=== PATIENT | female | born 1975 | race Caucasian/White ===

== ENCOUNTER 2016-09-05 15:14 | Inpatient (IN) | payer BC ==
[~2016-09-05] VITALS: Ht 175.3 cm; Wt 63.5 kg
[~2016-09-05 15:14] MED LIST: ACETAMINOPHEN/H1 TA6 PO; ATIVAN1 MG PO; COL100 PO; CYCLOBENZAPRINE10 MG PO; DILAUDID4 MG PO; DUL10S RC; FLONS; HYSINGLA ER40 MG PO; LAC PO; LAC30L PO; LEVOFLOXACIN500 M1 PO; METOCLOPRAMIDE10 MG PO; MSC15 PO; NOR10T PO; OXYCONTIN20 MG PO; REGLAN10 MG PO; RESTORIL15 MG PO; XANAX2 MG PO; ZOFRAN8 MG PO; [UNRECOGNIZED DRUG - CODE]
[2016-09-05 17:39] LABS: CALCIUM 9.3 mg/dL (8.5-10.1); CARBON DIOXIDE 31.7 mmol/L (21-32); CHLORIDE SERUM 103 mmol/L (98-107); CREATININE SERUM 0.8 mg/dL (0.6-1.0); GFR1 > 60 mL/min; GLUCOSE SERUM 141 mg/dL (74-106); POTASSIUM SERUM 3.3 mmol/L (3.5-5.1); SODIUM SERUM 142 mmol/L (136-145)
[2016-09-05 17:40] LABS: BASOPHIL % 0.1 % (0-2); PLATELET COUNT 196 x10^3mcL (130-400); RED CELL DISTRIBUTION WIDTH 14.5 % (11.5-14.5)
[2016-09-05 17:44] LABS: ALBUMIN 4.2 g/dL (3.4-5.0); ALKALINE PHOSPHATASE 75 U/L (46-116); ALT/SGPT 24 U/L (14-59); AST/SGOT 17 U/L (15-37); BILIRUBIN TOTAL 0.4 mg/dL (0.20-1.00); TOTAL PROTEIN, SERUM 7.8 g/dL (6.4-8.2)
[2016-09-05] MEDS ORDERED: FENTORA400 MCG BC (19:04)
[2016-09-05] MEDS ORDERED: ZANAFLEX CAPSULE4 MG PO (19:05)
[2016-09-05] MEDS ORDERED: HYSINGLA ER40 MG PO (19:05)
[2016-09-05] MEDS ORDERED: BEN20 PO (19:07)
[2016-09-05 20:20] LABS: MAGNESIUM 1.8 mg/dL (1.8-2.4); PHOSPHOROUS 3.2 mg/dL (2.5-4.9)
[2016-09-05 20:27] LABS: T3 TOTAL 0.79 ng/mL
[2016-09-05 20:29] LABS: FREE T4 0.82 ng/dL (0.76-1.46); T4(THYROXINE) 6.8 ug/dL (4.7-13.3)
[2016-09-05 20:34] VITALS: BP 138/87
[2016-09-05 21:01] VITALS: Ht 175.3 cm; Wt 63.5 kg
[2016-09-06 02:43] LABS: UA SPECIFIC GRAVITY >=1.030 (1.005-1.035); microscopic required? YES; urine erythrocyte TRACE (NEGATIVE)
[2016-09-06 03:08] LABS: AMPHETAMINE QUAL UR NONE DETECTED (NEG <=1000)
[2016-09-06 06:38] VITALS: BP 107/68
[2016-09-06 07:17] LABS: BASOPHIL % 0.2 % (0-2); PLATELET COUNT 163 x10^3mcL (130-400); RED CELL DISTRIBUTION WIDTH 14.3 % (11.5-14.5)
[2016-09-06 07:18] LABS: CALCIUM 8.5 mg/dL (8.5-10.1); CARBON DIOXIDE 26.2 mmol/L (21-32); CHLORIDE SERUM 107 mmol/L (98-107); CREATININE SERUM 0.6 mg/dL (0.6-1.0); GFR1 > 60 mL/min; GLUCOSE SERUM 107 mg/dL (74-106); POTASSIUM SERUM 3.2 mmol/L (3.5-5.1); SODIUM SERUM 142 mmol/L (136-145)
[2016-09-06 08:57] VITALS: BP 146/97
[2016-09-06 12:46] VITALS: BP 112/74
[2016-09-06 18:04] VITALS: BP 101/74
[2016-09-06 21:35] VITALS: BP 96/64
[2016-09-07 06:17] VITALS: BP 107/66
[2016-09-07 06:59] LABS: BASOPHIL % 0.6 % (0-2); PLATELET COUNT 139 x10^3mcL (130-400)
[2016-09-07 07:00] LABS: RED CELL DISTRIBUTION WIDTH 14.8 % (11.5-14.5)
[2016-09-07 07:03] LABS: CALCIUM 8.1 mg/dL (8.5-10.1); CARBON DIOXIDE 27.9 mmol/L (21-32); CHLORIDE SERUM 107 mmol/L (98-107); CREATININE SERUM 0.6 mg/dL (0.6-1.0); GFR1 > 60 mL/min; GLUCOSE SERUM 95 mg/dL (74-106); MAGNESIUM 1.9 mg/dL (1.8-2.4); PHOSPHOROUS 3.1 mg/dL (2.5-4.9); POTASSIUM SERUM 3.2 mmol/L (3.5-5.1); SODIUM SERUM 141 mmol/L (136-145)
[2016-09-07 09:11] VITALS: BP 115/74
[2016-09-07 13:34] VITALS: BP 129/81
[2016-09-07 17:09] VITALS: BP 132/84
[2016-09-07 21:51] VITALS: BP 116/73
[2016-09-08 06:01] VITALS: BP 122/90
[2016-09-08 06:15] LABS: BASOPHIL % 0.4 % (0-2); PLATELET COUNT 151 x10^3mcL (130-400); RED CELL DISTRIBUTION WIDTH 14.5 % (11.5-14.5)
[2016-09-08 06:34] LABS: CALCIUM 8.6 mg/dL (8.5-10.1); CARBON DIOXIDE 27.1 mmol/L (21-32); CHLORIDE SERUM 105 mmol/L (98-107); CREATININE SERUM 0.7 mg/dL (0.6-1.0); GFR1 > 60 mL/min; GLUCOSE SERUM 109 mg/dL (74-106); MAGNESIUM 1.9 mg/dL (1.8-2.4); PHOSPHOROUS 3.3 mg/dL (2.5-4.9); POTASSIUM SERUM 3.8 mmol/L (3.5-5.1); SODIUM SERUM 140 mmol/L (136-145)
[2016-09-08 09:34] VITALS: BP 144/87
[2016-09-08] MEDS ORDERED: MSC30 PO (09:49)
[2016-09-08] MEDS ORDERED: LEV500 PO (09:51)
[2016-09-08] MEDS ORDERED: COLACE100 MG PO (09:51)
[2016-09-08] MEDS ORDERED: LAC PO (09:52)
[2016-09-08] MEDS ORDERED: ROBAXIN500 MG PO (09:53)
[2016-09-08] MEDS ORDERED: ZOFRAN8 MG PO (10:10)
[2016-09-08 10:39] VITALS: BP 144/87
== END 2016-09-08 12:40 | disposition home or self-care (01) | DRG 947 ==
LOC: ED 15:14 → DU 18:45 → MU 09-08 05:40
PROVIDERS: Emergency Medicine; Family Medicine; ADMIT Family Medicine
DX: G89.18 Other acute postprocedural pain (principal); N17.0 Acute kidney failure with tubular necrosis; E44.0 Moderate protein-calorie malnutrition; G83.4 Cauda equina syndrome; N39.0 Urinary tract infection, site not specified; E87.6 Hypokalemia; E78.5 Hyperlipidemia, unspecified; F41.1 Generalized anxiety disorder; K58.9 Irritable bowel syndrome, unspecified; F43.10 Post-traumatic stress disorder, unspecified; F45.9 Somatoform disorder, unspecified; M54.9 Dorsalgia, unspecified; G89.4 Chronic pain syndrome; R82.4 Acetonuria; Z90.49 Acquired absence of other specified parts of digestive tract; Z98.890 Other specified postprocedural states; Z82.49 Family history of ischemic heart disease and other diseases of the circulatory system
CPT/HCPCS: 80307; 83880; 84439; C9113; J1100; J1170; J1200; J1630; J2060; J2270; J2405; J2550; J2765; J2800; J3480; J7030; Q0092

== ENCOUNTER 2017-11-23 06:22 | Inpatient (IN) | payer BC ==
[~2017-11-23] VITALS: Ht 175.3 cm; Wt 74.1 kg
[~2017-11-23 06:22] MED LIST changes: +BEN20 PO; +COLACE100 MG PO; +FENTORA400 MCG BC; +LEV500 PO; +MSC30 PO; +ROBAXIN500 MG PO; +ZANAFLEX CAPSULE4 MG PO
[2017-11-23 06:27] VITALS: Ht 175.3 cm; Wt 74.1 kg
[2017-11-23] MEDS ORDERED: ALPRAZOLAM2 M2 PO (09:57)
[2017-11-23] MEDS ORDERED: FLUOXETINE HYDR20 M2 (09:57)
[2017-11-23] MEDS ORDERED: BEN20 PO (09:57)
[2017-11-23] MEDS ORDERED: ZOFRAN8 MG PO (09:58)
[2017-11-23] MEDS ORDERED: NOR10T PO (09:58)
[2017-11-23] MEDS ORDERED: TIZANIDINE HCL4 MG PO (09:59)
[2017-11-23 10:08] LABS: BASOPHIL % 0.2 % (0-2); PLATELET COUNT 183 x10^3mcL (130-400); RED CELL DISTRIBUTION WIDTH 14.1 % (11.5-14.5)
[2017-11-23 10:29] LABS: CALCIUM 8.5 mg/dL (8.5-10.1); CARBON DIOXIDE 29.2 mmol/L (21-32); CHLORIDE SERUM 105 mmol/L (98-107); CREATININE SERUM 0.6 mg/dL (0.6-1.0); GFR1 > 60 mL/min; GLUCOSE SERUM 116 mg/dL (74-106); POTASSIUM SERUM 3.5 mmol/L (3.5-5.1); SODIUM SERUM 144 mmol/L (136-145)
[2017-11-23 10:37] LABS: ALBUMIN 3.5 g/dL (3.4-5.0); ALKALINE PHOSPHATASE 103 U/L (46-116); ALT/SGPT 34 U/L (14-59); AST/SGOT 29 U/L (15-37); TOTAL PROTEIN, SERUM 7.1 g/dL (6.4-8.2)
[2017-11-23 10:43] LABS: T3 TOTAL 0.91 ng/mL
[2017-11-23 10:56] VITALS: BP 139/87
[2017-11-23 11:43] LABS: MAGNESIUM 1.9 mg/dL (1.8-2.4); PHOSPHOROUS 3.2 mg/dL (2.5-4.9)
[2017-11-23] MEDS ORDERED: ACETAMINOPHEN &1 TA1 PO (11:45)
[2017-11-23 11:53] LABS: FREE T4 0.77 ng/dL (0.76-1.46); FREE THYROXINE INDEX 1.8 ug/dL (1.4-4.5); T4(THYROXINE) 5.7 ug/dL (4.7-13.3)
[2017-11-23 11:59] LABS: CHOLESTEROL/HDL RATIO 1.8
[2017-11-23 13:31] VITALS: BP 127/74
[2017-11-23 18:19] VITALS: BP 108/66
[2017-11-23 20:48] VITALS: BP 109/67
[2017-11-24 05:31] VITALS: BP 94/51
[2017-11-24 06:47] LABS: BASOPHIL % 0.2 % (0-2); PLATELET COUNT 174 x10^3mcL (130-400); RED CELL DISTRIBUTION WIDTH 14.3 % (11.5-14.5)
[2017-11-24 06:59] LABS: CALCIUM 8.5 mg/dL (8.5-10.1); CARBON DIOXIDE 28.1 mmol/L (21-32); CHLORIDE SERUM 105 mmol/L (98-107); CREATININE SERUM 0.6 mg/dL (0.6-1.0); GFR1 > 60 mL/min; GLUCOSE SERUM 110 mg/dL (74-106); MAGNESIUM 1.9 mg/dL (1.8-2.4); PHOSPHOROUS 2.9 mg/dL (2.5-4.9); POTASSIUM SERUM 3.4 mmol/L (3.5-5.1); SODIUM SERUM 142 mmol/L (136-145)
[2017-11-24 09:28] VITALS: BP 105/62
[2017-11-24 13:16] LABS: UA SPECIFIC GRAVITY >=1.030 (1.005-1.035); microscopic required? YES; urine erythrocyte NEGATIVE (NEGATIVE)
[2017-11-24 13:22] LABS: AMPHETAMINE QUAL UR NONE DETECTED (NEG <=1000)
[2017-11-24 13:28] VITALS: BP 111/79
[2017-11-24 17:51] VITALS: BP 101/56
[2017-11-24 22:09] VITALS: BP 104/59
[2017-11-25 04:30] VITALS: BP 102/72
[2017-11-25 06:28] LABS: CALCIUM 8.5 mg/dL (8.5-10.1); CHLORIDE SERUM 108 mmol/L (98-107); CREATININE SERUM 0.7 mg/dL (0.6-1.0); GFR1 > 60 mL/min; GLUCOSE SERUM 109 mg/dL (74-106); MAGNESIUM 1.7 mg/dL (1.8-2.4); PHOSPHOROUS 2.9 mg/dL (2.5-4.9); POTASSIUM SERUM 3.6 mmol/L (3.5-5.1); SODIUM SERUM 143 mmol/L (136-145)
[2017-11-25 06:44] LABS: BASOPHIL % 0.2 % (0-2); PLATELET COUNT 155 x10^3mcL (130-400); RED CELL DISTRIBUTION WIDTH 14.5 % (11.5-14.5)
[2017-11-25 09:03] VITALS: BP 95/60
[2017-11-25] MEDS ORDERED: LEVAQUIN750 MG PO (10:37)
[2017-11-25] MEDS ORDERED: LAC PO (10:37)
[2017-11-25] MEDS ORDERED: METAMUCIL FIBE3.4 GM PO ×2 (15:11→15:13)
[2017-11-25 15:33] VITALS: BP 95/60
== END 2017-11-25 16:20 | disposition home or self-care (01) | DRG 73 ==
LOC: ED 06:22 → MU 09:46 → DU 09:46 → MU 11-24 10:30
PROVIDERS: Emergency Medicine; Family Medicine
DX: G90.8 Other disorders of autonomic nervous system (principal); N17.0 Acute kidney failure with tubular necrosis; N39.0 Urinary tract infection, site not specified; K29.70 Gastritis, unspecified, without bleeding; M54.9 Dorsalgia, unspecified; F41.1 Generalized anxiety disorder; F32.9 Major depressive disorder, single episode, unspecified; G89.4 Chronic pain syndrome; R11.10 Vomiting, unspecified; E87.6 Hypokalemia; F12.988 Cannabis use, unspecified with other cannabis-induced disorder; E83.42 Hypomagnesemia; Z88.5 Allergy status to narcotic agent; Z82.49 Family history of ischemic heart disease and other diseases of the circulatory system
CPT/HCPCS: 83880; 84439; 87046; 87046-59; 97530-GP; G0480; J0696; J0780; J1100; J1200; J1630; J1644; J1885; J1956; J2405; J2550; J3010; J3490; J7030; Q0092

== ENCOUNTER 2018-03-24 22:39 | Emergency (ER) | payer BC ==
[~2018-03-24] VITALS: Ht 175.3 cm; Wt 72.6 kg
[~2018-03-24 22:39] MED LIST changes: +ACETAMINOPHEN &1 TA1 PO; +ALPRAZOLAM2 M2 PO; +FLUOXETINE HYDR20 M2; +LEVAQUIN750 MG PO; +METAMUCIL FIBE3.4 GM PO; +TIZANIDINE HCL4 MG PO
[2018-03-25 00:37] LABS: CALCIUM 9.3 mg/dL (8.5-10.1); CARBON DIOXIDE 27.7 mmol/L (21-32); CHLORIDE SERUM 100 mmol/L (98-107); CREATININE SERUM 0.7 mg/dL (0.6-1.0); GFR1 > 60 mL/min; GLUCOSE SERUM 139 mg/dL (74-106); POTASSIUM SERUM 3.5 mmol/L (3.5-5.1); SODIUM SERUM 137 mmol/L (136-145)
[2018-03-25 00:45] LABS: ALKALINE PHOSPHATASE 103 U/L (46-116); ALT/SGPT 53 U/L (14-59); AST/SGOT 39 U/L (15-37); BILIRUBIN TOTAL 0.3 mg/dL (0.20-1.00); LIPASE 118 IU/L (73-393); TOTAL PROTEIN, SERUM 8.2 g/dL (6.4-8.2)
[2018-03-25 00:58] LABS: microscopic required? NO
[2018-03-25 01:04] LABS: UA SPECIFIC GRAVITY 1.015 (1.005-1.035); urine erythrocyte NEGATIVE (NEGATIVE)
[2018-03-25 01:25] LABS: BASOPHIL % 0.7 % (0-2); PLATELET COUNT 198 x10^3mcL (130-400); RED CELL DISTRIBUTION WIDTH 12.4 % (11.5-14.5)
[2018-03-25 02:20] LABS: AMPHETAMINE QUAL UR NONE DETECTED (See below)
[2018-03-25 03:20] VITALS: BP 137/93
== END 2018-03-25 03:20 | disposition home or self-care (01) ==
LOC: ED 22:39
PROVIDERS: Emergency Medicine
DX: R11.2 Nausea with vomiting, unspecified (principal); F17.203 Nicotine dependence unspecified, with withdrawal; G89.29 Other chronic pain; Z98.890 Other specified postprocedural states; Z88.6 Allergy status to analgesic agent
CPT/HCPCS: J1170; J1200; J1630; J2060; J2270; J2550; J7030